=== PATIENT | female | born 1985 | race Caucasian/White ===

== ENCOUNTER 2017-08-28 13:39 | Outpatient (CLI) | payer BC ==
[2017-08-28 14:14] VITALS: BP 100/59
== END 2017-08-28 16:09 | disposition home or self-care (01) ==
LOC: LDOP 13:39
PROVIDERS: ATTEND Obstetrics & Gynecology
DX: O36.8130 Decreased fetal movements, third trimester, not applicable or unspecified (principal); Z3A.33 33 weeks gestation of pregnancy
CPT/HCPCS: 59025; 99201; G0463

== ENCOUNTER 2017-10-07 17:32 | Inpatient (IN) | payer BC ==
[~2017-10-07] VITALS: Ht 167.6 cm; Wt 87.3 kg
[2017-10-07 17:58] VITALS: BP 130/89
[2017-10-07] MEDS ORDERED: OXYTOCIN 30U/ 0.9% NaCL 500ML 500 ML IV PRN (18:57)
[2017-10-07] MEDS ORDERED: OXYTOCIN 30U/ 0.9% NaCL 500ML 500 ML IV ONE (18:57)
[2017-10-07] MEDS ORDERED: D5%-LACTATED RINGERS 1,000 ML IV SCH (18:57)
[2017-10-07] MEDS ORDERED: AMPICILLIN 2 GM in SODIUM CHLORIDE 0.9% 100 ML IVPB STA (18:57)
[2017-10-07] MEDS ORDERED: ONDANSETRON 2MG/ML, 2ML IVPush PRN (19:00)
[2017-10-07] MEDS ORDERED: FENTANYL PF 100 MCG/2ML IVPush PRN (19:00)
[2017-10-07] MEDS ORDERED: NEWBORN KIT ONE (19:00)
[2017-10-07] MEDS ORDERED: TERBUTALINE 1 MG/ML, 1ML IVPush PRN (19:00)
[2017-10-07] MEDS ORDERED: FENTANYL PF 100 MCG/2ML IV PRN (19:00)
[2017-10-07 19:22] LABS: BASOPHILS # (AUTO) 0.07 x10^3/uL (0-0.1); BASOPHILS % (AUTO) 1 % (0-1); EOSINOPHILS # (AUTO) 0.02 x10^3/uL (0-0.4); EOSINOPHILS % (AUTO) 0 % (1-7); LYMPHOCYTES # (AUTO) 1.93 x10^3/uL (1-3.4); LYMPHOCYTES % (AUTO) 17 % (22-44); MD NO; MEAN CORPUSCULAR HEMOGLOBIN 31.1 pg (27.0-34.8); MEAN CORPUSCULAR HGB CONC 33.4 g/dL (32.4-35.8); MEAN CORPUSCULAR VOLUME 93.1 fL (80-100); MEAN PLATELET VOLUME 8.6 fL (7.4-10.4); MONOCYTES # (AUTO) 0.68 x10^3/uL (0.2-0.8); MONOCYTES % (AUTO) 6 % (2-9); NEUTROPHILS # (AUTO) 8.82 x10^3/uL (1.8-6.8); NEUTROPHILS % (AUTO) 77 % (42-75); PLATELET COUNT 199 x10^3/uL (130-400); RED BLOOD COUNT 4.46 x10^6/uL (3.82-5.3); RED CELL DISTRIBUTION WIDTH 14.5 % (9.6-15.2)
[2017-10-07] MEDS: LACTATED RINGERS 1,000 ML IV SCH ×2 (19:40→22:12)
[2017-10-07] MEDS ORDERED: FENTANYL/BUPIV./NS/PF 250 ML EPIDCONT ONE ×2 (22:21→22:25)
[2017-10-07] MEDS ORDERED: FENTANYL PF 100 MCG/2ML ONE (22:21)
[2017-10-07] MEDS ORDERED: BUPIVACAINE 0.25% ONE (22:21)
[2017-10-07] MEDS ORDERED: LIDOCAINE/PF 1.5%-EPI 1:200K, 30ML ONE (22:25)
[2017-10-07] MEDS ORDERED: AMPICILLIN 1 GM in SODIUM CHLORIDE 0.9% 50 ML IVPB SCH (23:30)
[2017-10-08] MEDS ORDERED: LACTATED RINGERS 1,000 ML IV SCH (00:01)
[2017-10-08] MEDS ORDERED: OXYTOCIN 30U/ 0.9% NaCL 500ML 500 ML ONE (00:12)
[2017-10-08] MEDS ORDERED: LACTATED RINGERS 1,000 ML IVBOLUS PRN (00:30)
[2017-10-08] MEDS: LACTATED RINGERS 1,000 ML IV SCH (01:00)
[2017-10-08] MEDS: OXYTOCIN 30U/ 0.9% NaCL 500ML 500 ML IV SCH ×2 (04:43→14:43)
[2017-10-08] MEDS ORDERED: MISOPROSTOL 200 MCG TABLET PR PRN (05:00)
[2017-10-08] MEDS ORDERED: ACETAMINOPHEN 325 MG TABLET PO PRN ×2 (05:00)
[2017-10-08] MEDS ORDERED: OXYcodone/APAP 5/325MG TABLET PO PRN ×2 (05:00)
[2017-10-08] MEDS ORDERED: ONDANSETRON 2MG/ML, 2ML IV PRN (05:00)
[2017-10-08 08:35] VITALS: BP 118/82
[2017-10-08] MEDS: DOCUSATE 100 MG CAPSULE PO PRN ×2 (08:58→21:47)
[2017-10-08] MEDS: PRENATAL VIT/IRON/FA 1 EACH TABLET PO SCH (08:58)
[2017-10-08] MEDS: IBUPROFEN 600 MG TABLET PO PRN ×3 (08:58→21:47)
[2017-10-08 12:30] VITALS: BP 122/82
[2017-10-08 13:09] LABS: MEAN CORPUSCULAR HEMOGLOBIN 31.3 pg (27.0-34.8); MEAN CORPUSCULAR HGB CONC 33.4 g/dL (32.4-35.8); MEAN CORPUSCULAR VOLUME 93.7 fL (80-100); MEAN PLATELET VOLUME 8.7 fL (7.4-10.4); PLATELET COUNT 160 x10^3/uL (130-400); RED BLOOD COUNT 3.86 x10^6/uL (3.82-5.3); RED CELL DISTRIBUTION WIDTH 14.6 % (9.6-15.2)
[2017-10-08 13:27] LABS: BASOPHILS # (AUTO) 0.03 x10^3/uL (0-0.1); BASOPHILS % (AUTO) 0 % (0-1); EOSINOPHILS % (AUTO) 0 % (1-7); LYMPHOCYTES # (AUTO) 1.63 x10^3/uL (1-3.4); LYMPHOCYTES % (AUTO) 10 % (22-44); MD SCAN; MONOCYTES # (AUTO) 0.59 x10^3/uL (0.2-0.8); MONOCYTES % (AUTO) 4 % (2-9); NEUTROPHILS # (AUTO) 13.73 x10^3/uL (1.8-6.8); NEUTROPHILS % (AUTO) 86 % (42-75)
[2017-10-08 16:10] VITALS: BP 122/77
[2017-10-08 19:40] VITALS: BP 110/68
[2017-10-08 23:55] VITALS: BP 128/84
[2017-10-09] MEDS: OXYTOCIN 30U/ 0.9% NaCL 500ML 500 ML IV SCH ×3 (00:24→20:43)
[2017-10-09 04:30] VITALS: BP 120/58
[2017-10-09] MEDS: IBUPROFEN 600 MG TABLET PO PRN ×4 (04:42→22:32)
[2017-10-09 07:20] VITALS: BP 113/74
[2017-10-09] MEDS: PRENATAL VIT/IRON/FA 1 EACH TABLET PO SCH (09:00)
[2017-10-09] MEDS: DOCUSATE 100 MG CAPSULE PO PRN ×2 (10:46→22:32)
[2017-10-09 21:00] VITALS: BP 121/84
[2017-10-10] MEDS: IBUPROFEN 600 MG TABLET PO PRN ×2 (05:41→11:57)
[2017-10-10] MEDS: OXYTOCIN 30U/ 0.9% NaCL 500ML 500 ML IV SCH (06:43)
[2017-10-10 07:38] VITALS: BP 119/75
[2017-10-10] MEDS: PRENATAL VIT/IRON/FA 1 EACH TABLET PO SCH (09:00)
[2017-10-10] MEDS ORDERED: IBUP-1222 PO (09:44)
[2017-10-10] MEDS: DOCUSATE 100 MG CAPSULE PO PRN (11:56)
== END 2017-10-10 17:00 | disposition home or self-care (01) | DRG 775 ==
LOC: LDOP 17:32 → LDIP 19:45 → 2NW 10-08 08:26
PROVIDERS: ADMIT Obstetrics & Gynecology; ATTEND Obstetrics & Gynecology
PROC: 10E0XZZ Delivery of Products of Conception, External Approach (ICD-10-PCS; principal; 2017-10-08)
PROC: 0KQM0ZZ Repair Perineum Muscle, Open Approach (ICD-10-PCS; 2017-10-08)
DX: O99.824 Streptococcus B carrier state complicating childbirth (principal); Z37.0 Single live birth; O70.1 Second degree perineal laceration during delivery; Z3A.39 39 weeks gestation of pregnancy
CPT/HCPCS: 36415; 85025; 86850; 86900; J0290; J3490; J3010; J7120

== ENCOUNTER 2020-12-29 18:07 | Observation (INO) | payer BC ==
[~2020-12-29] VITALS: Ht 167.6 cm; Wt 98.8 kg
[~2020-12-29 18:07] MED LIST: IBUP-1222 PO
[2020-12-29 18:28] VITALS: BP 144/99
[2020-12-29 18:54] LABS: BASOPHILS % (AUTO) 0 % (0-1); EOSINOPHILS % (AUTO) 1 % (1-7); LYMPHOCYTES % (AUTO) 19 % (22-44); MEAN CORPUSCULAR HEMOGLOBIN 30.6 pg (27.0-34.8); MEAN CORPUSCULAR HGB CONC 33.2 g/dL (32.4-35.8); MEAN PLATELET VOLUME 9.1 fL (7.4-10.4); MONOCYTES % (AUTO) 8 % (2-9); NEUTROPHILS % (AUTO) 71 % (42-75); PLATELET COUNT 182 x10^3/uL (130-400); RED BLOOD COUNT 4.22 x10^6/uL (3.82-5.3); RED CELL DISTRIBUTION WIDTH 13.8 % (9.6-15.2)
[2020-12-29 19:04] LABS: ALANINE AMINOTRANSFERASE 12 U/L (12-78); ALBUMIN 2.6 g/dL (3.4-5.0); ANION GAP 6 mmol/L (5-15); CALCIUM 8.4 mg/dL (8.5-10.1); CHLORIDE 107 mmol/L (98-107)
[2020-12-29 19:09] LABS: ALKALINE PHOSPHATASE 116 U/L (45-117); BILIRUBIN,TOTAL 0.2 mg/dL (0.2-1.0); MD NO; TOTAL PROTEIN 6.8 g/dL (6.4-8.2)
[2020-12-29 19:09] LABS: MICROSCOPIC NOT IND
[2020-12-29 19:10] LABS: BILIRUBIN, DIRECT < 0.1 mg/dL (0.1-0.2)
[2020-12-29] MEDS ORDERED: LACTATED RINGERS 1,000 ML IV SCH (23:30)
[2020-12-30] MEDS ORDERED: FENTANYL PF 100 MCG/2ML IVPush PRN (02:30)
[2020-12-30] MEDS ORDERED: FENTANYL PF 100 MCG/2ML ONE (02:31)
== END 2020-12-30 05:57 | disposition home or self-care (01) ==
LOC: LDOP 18:07 → LDIP 21:10
PROVIDERS: ADMIT Obstetrics & Gynecology; ATTEND Obstetrics & Gynecology
DX: O75.82 Onset (spontaneous) of labor after 37 completed weeks of gestation but before 39 completed weeks gestation, with delivery by (planned) cesarean section (principal); Z3A.38 38 weeks gestation of pregnancy
CPT/HCPCS: 36415; 59025; 80053; 81003; 82248; 82570; 84156; 84550; 85025; 96361; 96374; G0378; J3010; J7120; 96360

== ENCOUNTER 2020-12-31 23:23 | Outpatient (CLI) | payer BC ==
[~2020-12-31] VITALS: Ht 167.6 cm; Wt 90.5 kg
[2020-12-31 23:25] VITALS: BP 144/94
[2021-01-02] MEDS ORDERED: PREN1TAB60 PO (18:42)
== END 2021-01-01 01:00 | disposition home or self-care (01) ==
LOC: LDOP 23:23
PROVIDERS: ATTEND Obstetrics & Gynecology
DX: O09.93 Supervision of high risk pregnancy, unspecified, third trimester (principal); O26.893 Other specified pregnancy related conditions, third trimester; R10.9 Unspecified abdominal pain; Z3A.38 38 weeks gestation of pregnancy
CPT/HCPCS: 59025

== ENCOUNTER 2021-01-02 18:05 | Inpatient (IN) | payer BC ==
[~2021-01-02] VITALS: Ht 167.6 cm; Wt 90.9 kg
[2021-01-02] MEDS ORDERED: NEWBORN KIT ONE (18:28)
[2021-01-02] MEDS ORDERED: TERBUTALINE 1 MG/ML, 1ML IVPush PRN (18:30)
[2021-01-02] MEDS ORDERED: OXYTOCIN 30U/ 0.9% NaCL 500ML 500 ML IV PRN (18:30)
[2021-01-02] MEDS ORDERED: SODIUM CITRATE/CITRIC ACID 30 ML UDC PO PRN (18:30)
[2021-01-02] MEDS ORDERED: FENTANYL PF 100 MCG/2ML IVPush PRN (18:30)
[2021-01-02] MEDS ORDERED: FENTANYL PF 100 MCG/2ML IV PRN (18:30)
[2021-01-02] MEDS ORDERED: D5%-LACTATED RINGERS 1,000 ML IV SCH (18:30)
[2021-01-02] MEDS ORDERED: TERBUTALINE 1 MG/ML, 1ML SQ PRN (18:30)
[2021-01-02] MEDS ORDERED: PENICILLIN GK 5,000,000 UNITS in DEXTROSE 5% 100 ML IVPB ONE (18:30)
[2021-01-02] MEDS ORDERED: METOCLOPRAMIDE 5 MG/ML, 2ML IVPush PRN (18:30)
[2021-01-02] MEDS ORDERED: OXYTOCIN 30U/ 0.9% NaCL 500ML 500 ML IV ONE (18:30)
[2021-01-02] MEDS ORDERED: LACTATED RINGERS 1,000 ML IV SCH (18:30)
[2021-01-02] MEDS ORDERED: CALCIUM CARBONATE 500 MG TAB.CHEW PO PRN (18:30)
[2021-01-02] MEDS ORDERED: ONDANSETRON 2MG/ML, 2ML IVPush PRN (18:30)
[2021-01-02] MEDS ORDERED: PREN1TAB60 PO (18:42)
[2021-01-02 19:02] LABS: BASOPHILS % (AUTO) 1 % (0-1); EOSINOPHILS % (AUTO) 1 % (1-7); LYMPHOCYTES % (AUTO) 19 % (22-44); MEAN CORPUSCULAR HEMOGLOBIN 30.8 pg (27.0-34.8); MEAN CORPUSCULAR HGB CONC 33.2 g/dL (32.4-35.8); MEAN PLATELET VOLUME 9.1 fL (7.4-10.4); MONOCYTES % (AUTO) 7 % (2-9); NEUTROPHILS % (AUTO) 73 % (42-75); PLATELET COUNT 193 x10^3/uL (130-400); RED BLOOD COUNT 4.15 x10^6/uL (3.82-5.3)
[2021-01-02 19:05] LABS: MD NO
[2021-01-02 19:12] LABS: ALANINE AMINOTRANSFERASE 14 U/L (12-78); ALBUMIN 2.5 g/dL (3.4-5.0); ANION GAP 11 mmol/L (5-15); CALCIUM 8.3 mg/dL (8.5-10.1); CHLORIDE 104 mmol/L (98-107); CREATININE 0.64 mg/dL (0.55-1.02)
[2021-01-02 19:14] LABS: ALKALINE PHOSPHATASE 113 U/L (45-117); BILIRUBIN,TOTAL 0.2 mg/dL (0.2-1.0); TOTAL PROTEIN 6.6 g/dL (6.4-8.2)
[2021-01-02] MEDS: OXYTOCIN 30U/ 0.9% NaCL 500ML 500 ML IV SCH (19:30)
[2021-01-02] MEDS: ACETAMINOPHEN 325 MG TABLET PO PRN ×2 (19:50→23:35)
[2021-01-02] MEDS ORDERED: ACETAMINOPHEN 325 MG TABLET ONE (19:56)
[2021-01-02] MEDS ORDERED: METOCLOPRAMIDE 5 MG/ML, 2ML IV PRN (20:30)
[2021-01-02] MEDS ORDERED: OXYcodone/APAP 5/325MG TABLET PO PRN ×2 (20:30)
[2021-01-02] MEDS ORDERED: CARBOPROST TROMETHAMINE 250 MCG/ML, 1ML IM PRN (20:30)
[2021-01-02] MEDS ORDERED: BISACODYL 10 MG SUPP PR PRN (20:30)
[2021-01-02] MEDS ORDERED: TRANEXAMIC ACID 1,000 MG in SODIUM CHLORIDE 0.9% 100 ML IVPB ONE (20:30)
[2021-01-02] MEDS ORDERED: ONDANSETRON 2MG/ML, 2ML IV PRN (20:30)
[2021-01-02] MEDS ORDERED: GLYCERIN ADULT SUPP PR PRN (20:30)
[2021-01-02] MEDS ORDERED: MAGNESIUM HYDROXIDE 8%, 30ML UDC PO PRN (20:30)
[2021-01-02] MEDS ORDERED: MISOPROSTOL 200 MCG TABLET PO PRN ×2 (20:30)
[2021-01-02] MEDS ORDERED: METHYLERGONOVINE 0.2 MG/ML IM PRN (20:30)
[2021-01-02] MEDS ORDERED: MISOPROSTOL 200 MCG TABLET PR PRN ×3 (20:30)
[2021-01-02] MEDS ORDERED: ACETAMINOPHEN 325 MG TABLET PO PRN (20:30)
[2021-01-02] MEDS ORDERED: SIMETHICONE 80 MG CHEW TAB PO PRN (20:30)
[2021-01-02] MEDS ORDERED: IBUPROFEN 800 MG TABLET PO PRN (20:30)
[2021-01-02] MEDS ORDERED: OXYcodone IR 5MG TABLET PO PRN (20:30)
[2021-01-02] MEDS ORDERED: MISOPROSTOL 200 MCG TABLET SL PRN ×2 (20:30)
[2021-01-02] MEDS ORDERED: TRANEXAMIC ACID 100 MG/ML, 10ML IV ONE (20:30)
[2021-01-02 22:30] VITALS: BP 131/77
[2021-01-02] MEDS ORDERED: PENICILLIN GK 2,500,000 UNITS in DEXTROSE 5% 100 ML IVPB SCH (22:30)
[2021-01-02] MEDS: IBUPROFEN 600 MG TABLET PO PRN (23:34)
[2021-01-02] MEDS: DOCUSATE 100 MG CAPSULE PO PRN (23:34)
[2021-01-03] MEDS: OXYTOCIN 30U/ 0.9% NaCL 500ML 500 ML IV SCH ×2 (00:51→19:50)
[2021-01-03 00:54] VITALS: BP 128/84
[2021-01-03 04:50] VITALS: BP 131/89
[2021-01-03 05:10] LABS: BASOPHILS % (AUTO) 0 % (0-1); EOSINOPHILS % (AUTO) 1 % (1-7); LYMPHOCYTES % (AUTO) 15 % (22-44); MEAN CORPUSCULAR HEMOGLOBIN 30.6 pg (27.0-34.8); MEAN CORPUSCULAR HGB CONC 33.3 g/dL (32.4-35.8); MEAN PLATELET VOLUME 9.5 fL (7.4-10.4); MONOCYTES % (AUTO) 6 % (2-9); NEUTROPHILS % (AUTO) 78 % (42-75); PLATELET COUNT 156 x10^3/uL (130-400); RED BLOOD COUNT 3.81 x10^6/uL (3.82-5.3); RED CELL DISTRIBUTION WIDTH 13.8 % (9.6-15.2)
[2021-01-03] MEDS: ACETAMINOPHEN 325 MG TABLET PO PRN ×3 (05:10→19:48)
[2021-01-03 05:11] LABS: MD NO
[2021-01-03 07:25] VITALS: BP 131/72
[2021-01-03] MEDS: DOCUSATE 100 MG CAPSULE PO PRN ×2 (07:30→19:48)
[2021-01-03] MEDS: IBUPROFEN 600 MG TABLET PO PRN ×3 (07:30→21:03)
[2021-01-03] MEDS: PRENATAL VIT/IRON/FA 1 EACH TABLET PO SCH (07:30)
[2021-01-03 12:14] VITALS: BP 130/86
[2021-01-03 19:50] VITALS: BP 133/84
[2021-01-04] MEDS: ACETAMINOPHEN 325 MG TABLET PO PRN ×3 (00:15→12:59)
[2021-01-04] MEDS: OXYTOCIN 30U/ 0.9% NaCL 500ML 500 ML IV SCH (02:30)
[2021-01-04] MEDS: IBUPROFEN 600 MG TABLET PO PRN ×2 (06:46→12:59)
[2021-01-04 07:40] VITALS: BP 112/75
[2021-01-04] MEDS ORDERED: IBUP-1222 PO (08:01)
[2021-01-04] MEDS: PRENATAL VIT/IRON/FA 1 EACH TABLET PO SCH (09:48)
[2021-01-04] MEDS: DOCUSATE 100 MG CAPSULE PO PRN (09:48)
== END 2021-01-04 13:20 | disposition home or self-care (01) | DRG 807 ==
LOC: LDOP 18:05 → LDIP 18:10 → 2NW 22:45
PROVIDERS: ADMIT Obstetrics & Gynecology; ATTEND Obstetrics & Gynecology
PROC: 10E0XZZ Delivery of Products of Conception, External Approach (ICD-10-PCS; principal; 2021-01-02)
PROC: 0KQM0ZZ Repair Perineum Muscle, Open Approach (ICD-10-PCS; 2021-01-02)
DX: O99.824 Streptococcus B carrier state complicating childbirth (principal); Z37.0 Single live birth; Z3A.38 38 weeks gestation of pregnancy; O70.1 Second degree perineal laceration during delivery
CPT/HCPCS: 36415; 80053; 84550; 85025; 86592; 86850; 86900; 87635; G0378; J2540; J2590; J7120